=== PATIENT | female | born 1975 | race Caucasian/White ===

== ENCOUNTER 2017-05-06 07:56 | Day surgery (SDC) | payer MEDICAID ==
[~2017-05-06 07:56] MED LIST: Lactated Ringers 1,000 ML IV SCH
[2017-05-06] MEDS ORDERED: ceFAZolin 2 GM in Premix Bag 1 BAG IV ONE ×2 (08:00→09:30)
[2017-05-06] MEDS ORDERED: Lactated Ringers 1,000 ML IV SCH (08:00)
[2017-05-06] MEDS ORDERED: Propofol 200 MG/20 ML SDV IV ONE (10:30)
[2017-05-06] MEDS ORDERED: Lactated Ringers 1,000 ML IV ONE (10:30)
[2017-05-06] MEDS ORDERED: fentaNYL 100 MCG/2 ML SDV IV ONE (10:30)
[2017-05-06] MEDS ORDERED: Ondansetron 4 MG/2 ML SDV IVPUSH ONE (10:30)
[2017-05-06] MEDS ORDERED: Ketorolac 30 MG/ML SDV IVPUSH ONE (10:30)
[2017-05-06] MEDS ORDERED: Rocuronium 50 MG/5 ML Vial IV ONE (10:30)
[2017-05-06] MEDS ORDERED: Midazolam 1 MG/ML 2 ML SDV IV ONE (10:30)
[2017-05-06] MEDS ORDERED: Neostigmine Methylsulfate 10 MG/10 ML MDV IVPUSH ONE (10:30)
[2017-05-06] MEDS ORDERED: Lidocaine 2% 100 MG/5 ML Syringe IVPUSH ONE (10:30)
[2017-05-06] MEDS ORDERED: Glycopyrrolate 0.2 MG/ML 5 ML MDV IV ONE (10:30)
--- NOTE | 2017-05-06 10:41 | PCM.PN ---
- General Info Date of Service: 05/06/17 - Review of Systems Systems Review Comment:: 42 y/o female here for repair of umbilical incisional hernia. The patient is stable to proceed with no recent significant changes to her health status. The site is confirmed with the patient and marked. She agrees to proceed. - Patient Data Vitals - Most Recent: Last Vital Signs Temp 98.7 F 05/06/17 08:33 Pulse 72 05/06/17 08:33 Resp 16 05/06/17 08:33 BP 142/78 H 05/06/17 08:33 Pulse Ox Weight - Most Recent: 257 lb Lab Results Last 24 Hours: Laboratory Results - last 24 hr 05/06/17 Range/Units 09:06 POC Glucose 209 H (80-116) mg/dL Med Orders - Current: Current Medications Lactated Ringer's (Ringers, Lactated) 1,000 mls @ 125 mls/hr IV ASDIRECTED [facility] Last Admin: 05/06/17 09:16 Dose: 125 mls/hr Discontinued Medications Lactated Ringer's (Ringers, Lactated) 1,000 mls @ 125 mls/hr IV ASDIRECTED [facility] Cefazolin Sodium/Dextrose 2 gm (/ Premix) 50 mls @ 50 mls/hr IV ONETIME ONE Stop: 05/06/17 10:29 Last Admin: 05/06/17 09:17 Dose: 50 mls/hr - Problem List Review Problem List Initiated/Reviewed/Updated: Yes - My Orders Last 24 Hours: My Active Orders 05/06/17 08:00 Patient Status [ADT] Routine Blood Glucose Check, Bedside [RC] ONETIME Patient to Empty Bladder [RC] ASDIRECTED Verify Patient Consent Obtain [RC] ASDIRECTED Lactated Ringers [Ringers, Lactated] 1,000 ml IV ASDIRECTED Peripheral IV Insertion Adult [OM.PC] Routine Sequential Compression Device [OM.PC] Routine 05/06/17 Breakfast Nothing Per Oral Diet [DIET] - Assessment Assessment:: Umbilical incisional hernia - Plan Plan:: Repair umbilical incisional hernia
[2017-05-06] MEDS ORDERED: Bupivacaine 0.25% 30 ML SDV INJECT ONE (10:58)
[2017-05-06] MEDS ORDERED: ceFAZolin 1 GM Vial ONE (10:58)
--- NOTE | 2017-05-06 11:36 | PCM.OPNOTE ---
- General Post-Op/Procedure Note Date of Surgery/Procedure: 05/06/17 Operative Procedure(s): Repair Umbilical Hernia Findings: Moderate sized umbilical hernia with good quality surrounding fascia Pre Op Diagnosis: Umbilical Hernia Post-Op Diagnosis: Same Anesthesia Technique: General ET Tube Primary Surgeon: Iker Callahan Pathology: Hernia Sac and Contents Output, Urine Amount: 0 EBL in mLs: 20 Complications: None Condition: Good
[2017-05-06] MEDS ORDERED: Acetaminophen/HYDROcodone 325-5 MG Tab PO ONE (12:01)
--- NOTE | 2017-05-06 12:40 | OR ---
DATE OF OPERATION: 05/06/2017 SURGEON: Iker Callahan MD PREOPERATIVE DIAGNOSIS: Umbilical hernia. POSTOPERATIVE DIAGNOSIS: Umbilical hernia. OPERATION PERFORMED: Repair of umbilical hernia. INDICATIONS FOR SURGERY: This 42-year-old female presents with an increasingly symptomatic bulge at the level of her umbilicus. She has physical findings consistent with an umbilical hernia and she comes for elective repair. FINDINGS: The patient has a moderate-sized umbilical hernia. There is some omentum in the hernia sac although not incarcerated in it. The surrounding fascia appears solid with no other nearby defects. The fascial opening is 3-4 cm in size. PROCEDURE IN DETAIL: The patient was taken to the operating room. She was given general endotracheal anesthesia. The abdomen was sterilely prepped and draped. A transversely oriented supraumbilical incision was made. This was carried down to the underlying hernia sac which was isolated from the surrounding subcutaneous tissue down to the level of the underlying fascia. The skin of the umbilicus was carefully dissected off the hernia sac as well as off the underlying fascia so that this could be clearly inspected. The hernia sac once isolated to the fascia level was amputated using cautery at its junction with the fascia and removed and will be submitted for pathology. Palpation intraabdominally was carried out around the hernia defect and the fascia all appears of good quality circumferentially. The fascial edges were then reapproximated closing the hernia defect with interrupted #1 Prolene in the Smead-Fu suturing technique. This resulted in complete closure of the hernia defect without any evidence of complication. The wound was irrigated and infiltrated with Marcaine. The skin of the umbilicus was tacked down to the underlying fascia and the subcutaneous tissue was approximated with interrupted 3-0 Vicryl and the skin was closed with a running 4-0 Vicryl subcuticular stitch, Steri-Strips and Benzoin. Antibiotic ointment and a sterile dressing were placed. The patient was then awakened, extubated, taken from the operating room in satisfactory condition. ESTIMATED BLOOD LOSS: 20 mL. COMPLICATIONS: None. PROGNOSIS: Good. /[id number] VALERIE/FRANCO
[2017-05-06 15:09] VITALS: BP 116/67
== END 2017-05-06 13:39 | disposition home health service (06) ==
LOC: FB.SDS 07:56
PROVIDERS: ATTEND Surgery
DX: K42.9 Umbilical hernia without obstruction or gangrene (principal); I10 Essential (primary) hypertension; E11.9 Type 2 diabetes mellitus without complications; E78.5 Hyperlipidemia, unspecified; J45.30 Mild persistent asthma, uncomplicated; K21.9 Gastro-esophageal reflux disease without esophagitis; E66.9 Obesity, unspecified; Z91.09 Other allergy status, other than to drugs and biological substances; J30.81 Allergic rhinitis due to animal (cat) (dog) hair and dander; Z79.82 Long term (current) use of aspirin; Z79.899 Other long term (current) drug therapy; Z79.4 Long term (current) use of insulin; Z90.49 Acquired absence of other specified parts of digestive tract; Z98.890 Other specified postprocedural states; Z87.891 Personal history of nicotine dependence
CPT/HCPCS: 49585; 82962; 88302; A9270; J0690; J1885; J2250; J2405; J2704; J2710; J3010; J3490; J7120

== ENCOUNTER 2019-05-25 19:49 | Emergency (ER) | payer MEDICAID ==
[2019-05-25] MEDS ORDERED: Sodium Chloride 0.9% 1,000 ML IV SCH (20:00)
--- NOTE | 2019-05-25 21:01 | EDM.PDOC ---
ED HPI GENERAL MEDICAL PROBLEM - General Chief Complaint: Headache Stated Complaint: MIGRAINE Time Seen by Provider: 05/25/19 20:30 Source of Information: Reports: Patient History Limitations: Reports: No Limitations - History of Present Illness INITIAL COMMENTS - FREE TEXT/NARRATIVE: she presents concern for migraines in the past 2 and half weeks. She reports feeling slightly dizzy, tired, head throbbing, sensitive to light. Normally she is able to go to sleep, but these wounds are actually waking her up a little bit at night and that she is unable to back to sleep. Does get an aura prior to her migraines and abdomen with this one. Denies any nausea. Does not take any regular medication for migraine headaches. She did try taking 1 Excedrin Migraine, but that didn't improve. She has a follow-up appointment on Saturday with her PCP but states that the pain today just became worse and worse and unbearable. Drink caffeine regularly, approximately a pop or 2 a day. She drinks occasional coffee and tea with this, but no additional energy drinks or caffeine supplements. She's been told not to take ibuprofen because of her diabetes. She reports that her glucoses been within reasonable control for her on her to Olivier , NovoLog and Janumet. She smokes approximately a pack per day, but no alcohol or drug use. She denies ringing in her years, change in her vision, numbness, weakness or tingling in any of her extremities, not really nauseous, and no other complaints. She denies fever, neck stiffness, symptoms of her recent upper respiratory tract infection, chest pain, shortness of breath, dyspnea on exertion, abdominal pain, change in urinary habits, leg swelling. headache Pain Score (Numeric/FACES): 10 - Related Data Allergies Allergy/AdvReac Type Severity Reaction Status Date / Time adhesive Allergy Hives Verified 05/25/19 19:58 cat dander Allergy Headache Verified 05/25/19 19:58 Home Meds: Home Meds Aspirin [Halfprin] 81 mg PO DAILY 07/22/14 [History] Esomeprazole [NexIUM] 40 mg PO DAILY 07/22/14 [History] Montelukast Sodium [Singulair] 10 mg PO BEDTIME 07/22/14 [History] hydroCHLOROthiazide [Hydrochlorothiazide] 25 mg PO DAILY 07/22/14 [History] sitaGLIPtin Phos/Metformin HCl [Janumet 50-1,000 MG] 1 each PO BID 07/22/14 [ History] Albuterol Sulfate [Albuterol Sulfate HFA] 2 puff IH Q4H PRN 12/11/14 [History] Clotrimazole [Clotrimazole 1%] 1 applic TOP BID 12/11/14 [History] Fluticasone/Salmeterol [Advair 250-50] 1 puff INH BID 12/11/14 [History] Insulin Aspart [NovoLOG] 15 unit SUBCUT ACBREAKFAST 12/11/14 [History] Insulin Aspart [NovoLOG] 18 unit SUBCUT ACDINNER 12/11/14 [History] Insulin Aspart [NovoLOG] 18 unit SUBCUT ACLUNCH 12/11/14 [History] Insulin Glarg,Human.Rec.Analog [Lantus Solostar] 50 unit SUBCUT BEDTIME [History] Lisinopril [Prinivil] 40 mg PO DAILY 12/11/14 [History] Polyethylene Glycol 3350 255 gm PO DAILY 12/11/14 [History] Sertraline [Zoloft] 100 mg PO DAILY 01/23/15 [History] traZODone 100 mg PO BEDTIME 01/23/15 [History] Calcium Carb/Magnesium Cmb #10 [Adeel-Mag] 1 tab PO BID 05/03/17 [History] Carboxymethylcellulos/Glycerin [Refresh Optive] 1 drop EYEBOTH ASDIRECTED PRN [History] Meclizine HCl 25 mg PO TID PRN 05/03/17 [History] Sennosides [Senexon] 50 mg PO BID 05/03/17 [History] Tolterodine Tartrate [Tolterodine Tartrate ER] 4 mg PO DAILY 05/03/17 [History] atorvaSTATin [Lipitor] 20 mg PO BEDTIME 05/03/17 [History] Hydrocodone/Acetaminophen [Hydrocodon-Acetaminophen 5-325] 1 - 2 tab PO Q4HR PRN #24 tablet 05/06/17 [Rx] Past Medical History HEENT History: Reports: Impaired Vision Cardiovascular History: Reports: High Cholesterol, Hypertension Respiratory History: Reports: Asthma Gastrointestinal History: Reports: Cholelithiasis, GERD Genitourinary History: Reports: Urinary Incontinence SKI BINDING 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 Psychiatric History: Reports: Depression Endocrine/Metabolic History: Reports: Diabetes, Type II Other Endocrine/Metabolic History: USES INSULIN ON IRREGULAR BASIS, ALONG WITH ORAL MED. Hematologic History: Reports: None Immunologic History: Reports: None Oncologic (Cancer) History: Reports: None Dermatologic History: Reports: None - Infectious Disease History Infectious Disease History: Reports: Chicken Pox - Past Surgical History Head Surgeries/Procedures: Reports: None HEENT Surgical History: Reports: Other (See Below) Other HEENT Surgeries/Procedures: RHINOPLASTY GI Surgical History: Reports: Cholecystectomy Female Surgical History: Reports: Hysterectomy, Other (See Below) Other Female Surgeries/Procedures: URETHRAL SLING PLACED Social & Family History - Family History Family Medical History: Noncontributory - Tobacco Use Smoking Status *Q: Current Every Day Smoker Years of Tobacco use: 29 Packs/Tins Daily: 0.5 Tobacco Use Comment: states that she smoked on and off of the years that she is smoking. - Caffeine Use Caffeine Use: Reports: Coffee, Soda, Tea - Alcohol Use Alcohol Use History: No - Recreational Drug Use Recreational Drug Use: No - Living Situation & Occupation Living situation: Reports: Occupation: Employed ED ROS GENERAL - Review of Systems Review Of Systems: ROS reveals no pertinent complaints other than HPI. ED EXAM, GENERAL - Physical Exam Exam: See Below Free Text/Narrative:: Gen.: Alert, pleasant no acute distress. Head is atraumatic. Pupils are equal and reactive and extraocular motion is intact. External ears appear normal, facial muscles are symmetric, throat is without erythema, tongue and uvula are midline. Sensation is equal on both sides of the face. There is no cervical lymphadenopathy in neck is supple. Heart is regular rate and rhythm, lungs are clear throughout with no wheezes or crackles. Abdomen positive bowel sounds, soft nondistended nontender. Muscular strength is equal side to side both the upper and lower extremities and gait is normal, cranial nerves are normal as noted above. Peripheral pulses +2 over 4 in both the upper and lower extremities and there is no lower extremity edema. No abnormal skin lesions or rashes. EKG INTERPRETATION Rhythm: NSR P-Wave: Present QRS: Normal ST-T: Normal QT: Normal Course - Vital Signs Text/Narrative:: initial impression, dizziness over the past 2 weeks, seems to be consistent with her prior migraines however she did appear to be slightly syncopal when went to sat up. We'll get labs, EKG, orthostatics. If everything negative will treat as though migraine with standard migraine cocktail. IV Fluid started Last Recorded V/S: Last Vital Signs Temp 36.7 C 05/25/19 19:58 Pulse 87 05/25/19 19:58 Resp 17 05/25/19 19:58 BP 93/58 L 05/25/19 19:58 Pulse Ox 97 05/25/19 19:58 - Orders/Labs/Meds Orders: Active Orders 24 hr Category Date Time Status EKG Documentation Completion [RC] ASDIRECTED Care 05/25/19 20:42 Ordered Sodium Chloride 0.9% [Normal Saline] 1,000 ml Med 05/25/19 20:00 Active IV ASDIRECTED EKG 12 Lead [EK] Routine Ther 05/25/19 20:41 Ordered Medication Orders Sodium Chloride (Normal Saline) 1,000 mls @ 999 mls/hr IV ASDIRECTED [facility] Last Admin: 05/25/19 20:10 Dose: 999 mls/hr Labs: Laboratory Tests 05/25/19 05/25/19 05/25/19 Range/Units 20:50 20:50 20:50 WBC 7.9 (4.5-12.0) X10-3/uL RBC 4.55 (3.23-5.20) x10(6)uL Hgb 12.4 (11.5-15.5) g/dL Hct 36.5 (30.0-51.3) % MCV 80.1 (80-96) fL MCH 27.1 L (27.7-33.6) pg MCHC 33.9 (32.2-35.4) g/dL RDW 14.8 (11.5-15.5) % Plt Count 259 (125-369) X10(3)uL MPV 8.8 (7.4-10.4) fL Neut % (Auto) 68.7 (46-82) % Lymph % (Auto) 21.8 (13-37) % [place] % (Auto) 5.9 (4-12) % Eos % (Auto) 3 (1.0-5.0) % Baso % (Auto) 1 (0-2) % Neut # (Auto) 5.5 (1.6-8.3) # Lymph # (Auto) 1.7 (0.6-5.0) # [place] # (Auto) 0.5 (0.0-1.3) # Eos # (Auto) 0.2 (0.0-0.8) # Baso # (Auto) 0.0 (0.0-0.2) # Sodium 137 (135-145) mmol/L Potassium 4.0 (3.5-5.3) mmol/L Chloride 101 (100-110) mmol/L Carbon Dioxide 24 (21-32) mmol/L BUN 16 (7-18) mg/dL Creatinine 1.0 (0.55-1.02) mg/dL Est Cr Clr Drug Dosing 70.91 mL/min Estimated GFR (MDRD) 60 (>60) BUN/Creatinine Ratio 16.0 (9-20) Glucose 306 H (80-116) mg/dL Calcium 9.2 (8.6-10.2) mg/dL Troponin I < 0.017 L (<0.017-0.056) ng/mL Meds: Medications Generic Name Dose Route Start Last Admin Trade Name Freq PRN Reason Stop Dose Admin Sodium Chloride 1,000 mls @ 999 mls/hr 05/25/19 20:00 05/25/19 20:45 Normal Saline IV 999 mls/hr ASDIRECTED [facility] Infusion Discontinued Medications Generic Name Dose Route Start Last Admin Trade Name Freq PRN Reason Stop Dose Admin Diphenhydramine HCl 50 mg 05/25/19 21:11 05/25/19 21:33 Benadryl IVPUSH 05/25/19 21:12 50 mg ONETIME ONE Administration Ketorolac Tromethamine 15 mg 05/25/19 21:11 05/25/19 21:32 Toradol IVPUSH 05/25/19 21:12 15 mg ONETIME ONE Administration Prochlorperazine Edisylate 10 mg 05/25/19 21:11 05/25/19 21:32 Compazine IVPUSH 05/25/19 21:12 10 mg ONETIME ONE Administration - Re-Assessments/Exams Free Text/Narrative Re-Assessment/Exam: 05/25/19 labs returned within normal limits, orthostatics are negative, EKG also normal. Will give low-dose Toradol, IV Compazine and Benadryl and finished 1 L normal saline bolus then reassess. Free Text/Narrative Re-Assessment/Exam: 05/25/19 21:51 feeling improved following meds and 1 L bolus. She feels at this point she would like to go home and sleep, and will keep her follow-up appointment on Saturday. Recommended increase her daily water intake at this time and discussed other home treatments for migraines. All questions were answered and she is in agreement with this plan Departure - Departure Time of Disposition: 21:39 Disposition: Home, Self-Care 01 Condition: Good Clinical Impression: Migraine - Discharge Information Instructions: Recurrent Migraine Headache, [id number] Referrals: Jaqueline Garrido [facility] SALES DEVELOPER [Primary Care Provider] - Forms: ED Department Discharge Additional Instructions: be sure to drink a lot of fluid at home, water is best of note, sometimes the sugar-free pop can actually contribute to headaches - the sugar substitute doesn't agree with some people careful with caffeine, although sometimes it is helpful for migraines followup with PCP on Saturday as scheduled - My Orders Last 24 Hours: My Active Orders 05/25/19 20:00 Sodium Chloride 0.9% [Normal Saline] 1,000 ml IV ASDIRECTED 05/25/19 20:41 EKG 12 Lead [EK] Routine 05/25/19 20:42 EKG Documentation Completion [RC] ASDIRECTED - Assessment/Plan Last 24 Hours: My Active Orders 05/25/19 20:00 Sodium Chloride 0.9% [Normal Saline] 1,000 ml IV ASDIRECTED 05/25/19 20:41 EKG 12 Lead [EK] Routine 05/25/19 20:42 EKG Documentation Completion [RC] ASDIRECTED
[2019-05-25] MEDS ORDERED: diphenhydrAMINE 50 MG/ML SDV IVPUSH ONE (21:11)
[2019-05-25] MEDS ORDERED: Ketorolac 30 MG/ML SDV IVPUSH ONE (21:11)
[2019-05-25] MEDS ORDERED: Prochlorperazine 10 MG/2 ML SDV IVPUSH ONE (21:11)
[2019-05-25 22:07] VITALS: BP 105/50; PULSE 83
== END 2019-05-25 21:47 | disposition home or self-care (01) ==
LOC: FB.ED 19:49
DX: G43.909 Migraine, unspecified, not intractable, without status migrainosus (principal); I10 Essential (primary) hypertension; E11.9 Type 2 diabetes mellitus without complications; J45.909 Unspecified asthma, uncomplicated; F32.9 Major depressive disorder, single episode, unspecified; M19.90 Unspecified osteoarthritis, unspecified site; E78.00 Pure hypercholesterolemia, unspecified; F17.210 Nicotine dependence, cigarettes, uncomplicated; Z79.82 Long term (current) use of aspirin; Z79.4 Long term (current) use of insulin; Z79.899 Other long term (current) drug therapy
CPT/HCPCS: 36415; 80048; 84484; 85025; 93005; 96374; 96375; 99283; J0780; J1200; J1885; J7030

== ENCOUNTER 2019-06-02 17:49 | Emergency (ER) | payer MEDICAID ==
[2019-06-02] MEDS ORDERED: Alum Hydroxide/Mag Hydroxide 15 ML, Lidocaine 2% 15 ML PO ONE ×2 (18:18)
--- NOTE | 2019-06-02 19:05 | EDM.PDOC ---
ED HPI GENERAL MEDICAL PROBLEM - General Chief Complaint: Chest Pain Stated Complaint: CHEST PAIN Time Seen by Provider: 06/02/19 18:00 Source of Information: Reports: Patient - History of Present Illness INITIAL COMMENTS - FREE TEXT/NARRATIVE: Patient is a 44 YO WF who presented to the ED because epigastric pain,burning, radiating to her sternal area. The pain is 7/10 and worse with breathing and movements. She denies any N/V,dyspnea. She had similar episodes in the past and her EKG and troponin are normal. Onset: Today - Related Data Allergies Allergy/AdvReac Type Severity Reaction Status Date / Time adhesive Allergy Hives Verified 06/02/19 18:03 cat dander Allergy Headache Verified 06/02/19 18:03 Home Meds: Home Meds Aspirin [Halfprin] 81 mg PO DAILY 07/22/14 [History] Esomeprazole [NexIUM] 40 mg PO DAILY 07/22/14 [History] Montelukast Sodium [Singulair] 10 mg PO BEDTIME 07/22/14 [History] hydroCHLOROthiazide [Hydrochlorothiazide] 25 mg PO DAILY 07/22/14 [History] sitaGLIPtin Phos/Metformin HCl [Janumet 50-1,000 MG] 1 each PO BID 07/22/14 [ History] Albuterol Sulfate [Albuterol Sulfate HFA] 2 puff IH Q4H PRN 12/11/14 [History] Clotrimazole [Clotrimazole 1%] 1 applic TOP BID 12/11/14 [History] Fluticasone/Salmeterol [Advair 250-50] 1 puff INH BID 12/11/14 [History] Insulin Aspart [NovoLOG] 15 unit SUBCUT ACBREAKFAST 12/11/14 [History] Insulin Aspart [NovoLOG] 18 unit SUBCUT ACDINNER 12/11/14 [History] Insulin Aspart [NovoLOG] 18 unit SUBCUT ACLUNCH 12/11/14 [History] Insulin Glarg,Human.Rec.Analog [Lantus Solostar] 50 unit SUBCUT BEDTIME [History] Lisinopril [Prinivil] 40 mg PO DAILY 12/11/14 [History] Polyethylene Glycol 3350 255 gm PO DAILY 12/11/14 [History] Sertraline [Zoloft] 100 mg PO DAILY 01/23/15 [History] traZODone 100 mg PO BEDTIME 01/23/15 [History] Calcium Carb/Magnesium Cmb #10 [Adeel-Mag] 1 tab PO BID 05/03/17 [History] Carboxymethylcellulos/Glycerin [Refresh Optive] 1 drop EYEBOTH ASDIRECTED PRN [History] Meclizine HCl 25 mg PO TID PRN 05/03/17 [History] Sennosides [Senexon] 50 mg PO BID 05/03/17 [History] Tolterodine Tartrate [Tolterodine Tartrate ER] 4 mg PO DAILY 05/03/17 [History] atorvaSTATin [Lipitor] 20 mg PO BEDTIME 05/03/17 [History] Hydrocodone/Acetaminophen [Hydrocodon-Acetaminophen 5-325] 1 - 2 tab PO Q4HR PRN #24 tablet 05/06/17 [Rx] Past Medical History HEENT History: Reports: Impaired Vision Cardiovascular History: Reports: High Cholesterol, Hypertension Respiratory History: Reports: Asthma Gastrointestinal History: Reports: Cholelithiasis, GERD Genitourinary History: Reports: Urinary Incontinence IMPLEMENTATION 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 Psychiatric History: Reports: Depression Endocrine/Metabolic History: Reports: Diabetes, Type II Other Endocrine/Metabolic History: USES INSULIN ON IRREGULAR BASIS, ALONG WITH ORAL MED. Hematologic History: Reports: None Immunologic History: Reports: None Oncologic (Cancer) History: Reports: None Dermatologic History: Reports: None - Infectious Disease History Infectious Disease History: Reports: Chicken Pox - Past Surgical History Head Surgeries/Procedures: Reports: None HEENT Surgical History: Reports: Other (See Below) Other HEENT Surgeries/Procedures: RHINOPLASTY GI Surgical History: Reports: Cholecystectomy Female Surgical History: Reports: Hysterectomy, Other (See Below) Other Female Surgeries/Procedures: URETHRAL SLING PLACED Social & Family History - Family History Family Medical History: Noncontributory - Caffeine Use Caffeine Use: Reports: Coffee, Soda, Tea - Living Situation & Occupation Living situation: Reports: Occupation: Employed ED ROS GENERAL - Review of Systems Review Of Systems: Unable To Obtain Constitutional: Reports: No Symptoms HEENT: Reports: No Symptoms Respiratory: Reports: No Symptoms Cardiovascular: Reports: No Symptoms Endocrine: Reports: No Symptoms GI/Abdominal: Reports: No Symptoms, Other (epigastric pain) : Reports: No Symptoms Musculoskeletal: Reports: No Symptoms Skin: Reports: No Symptoms Neurological: Reports: No Symptoms ED EXAM, GENERAL - Physical Exam Exam: See Below Exam Limited By: No Limitations General Appearance: Alert, No Apparent Distress Ears: Normal External Exam, Normal Canal Nose: Normal Inspection, Normal Mucosa, No Blood Throat/Mouth: Normal Inspection, Normal Lips Head: Atraumatic, Normocephalic Neck: Normal Inspection, Supple, Non-Tender Respiratory/Chest: No Respiratory Distress, Lungs Clear, Normal Breath Sounds Cardiovascular: Normal Peripheral Pulses, Regular Rate, Rhythm, No Edema, No Murmur, No Rub GI/Abdominal: Normal Bowel Sounds, Soft, Other (epigastric tenderness) Back Exam: Normal Inspection Extremities: Normal Inspection Neurological: Oriented, CN II-XII Intact Course - Vital Signs Last Recorded V/S: Last Vital Signs Temp 36.6 C 06/02/19 17:55 Pulse 78 06/02/19 17:55 Resp 17 06/02/19 17:55 BP 112/88 06/02/19 17:55 Pulse Ox 95 06/02/19 17:55 - Orders/Labs/Meds Orders: Active Orders 24 hr Category Date Time Status EKG Documentation Completion [RC] ASDIRECTED Care 06/02/19 18:21 Active EKG 12 Lead [EK] Routine Ther 06/02/19 18:21 Ordered Labs: Laboratory Tests 06/02/19 06/02/19 06/02/19 Range/Units 18:30 18:30 18:30 WBC 8.6 (4.5-12.0) X10-3/uL RBC 4.39 (3.23-5.20) x10(6)uL Hgb 12.1 (11.5-15.5) g/dL Hct 35.1 (30.0-51.3) % MCV 79.9 L (80-96) fL MCH 27.5 L (27.7-33.6) pg MCHC 34.4 (32.2-35.4) g/dL RDW 14.8 (11.5-15.5) % Plt Count 283 (125-369) X10(3)uL MPV 8.9 (7.4-10.4) fL Neut % (Auto) 70.5 (46-82) % Lymph % (Auto) 20.8 (13-37) % [place] % (Auto) 5.4 (4-12) % Eos % (Auto) 3 (1.0-5.0) % Baso % (Auto) 1 (0-2) % Neut # (Auto) 6.1 (1.6-8.3) # Lymph # (Auto) 1.8 (0.6-5.0) # [place] # (Auto) 0.5 (0.0-1.3) # Eos # (Auto) 0.2 (0.0-0.8) # Baso # (Auto) 0.0 (0.0-0.2) # Sodium 138 (135-145) mmol/L Potassium 4.0 (3.5-5.3) mmol/L Chloride 103 (100-110) mmol/L Carbon Dioxide 28 (21-32) mmol/L BUN 11 (7-18) mg/dL Creatinine 0.8 (0.55-1.02) mg/dL Est Cr Clr Drug Dosing TNP Estimated GFR (MDRD) > 60 (>60) BUN/Creatinine Ratio 13.8 (9-20) Glucose 117 H D (80-116) mg/dL Calcium 8.9 (8.6-10.2) mg/dL Troponin I < 0.017 L (<0.017-0.056) ng/mL Meds: Medications Discontinued Medications Generic Name Dose Route Start Last Admin Trade Name Freq PRN Reason Stop Dose Admin Al Hydroxide/Mg Hydroxide 15 0 ml 06/02/19 18:18 06/02/19 18:24 ml/ Lidocaine HCl 15 ml PO 06/02/19 18:19 30 ml ONETIME ONE Administration Departure - Departure Time of Disposition: 16:50 Disposition: Home, Self-Care 01 Clinical Impression: GERD (gastroesophageal reflux disease) Instructions: Heartburn, [id number] Referrals: Jaqueline Garrido COATER [Primary Care Provider] - Forms: ED Department Discharge Additional Instructions: please read dischage instructions on GERD/Heart burn read the food and beverages that can make your acid reflux worse continue prilosec 20 mg once daily follow up if symptoms persist or worsens - My Orders Last 24 Hours: My Active Orders 06/02/19 18:21 EKG Documentation Completion [RC] ASDIRECTED EKG 12 Lead [EK] Routine - Assessment/Plan Last 24 Hours: My Active Orders 06/02/19 18:21 EKG Documentation Completion [RC] ASDIRECTED EKG 12 Lead [EK] Routine
[2019-06-02 19:29] VITALS: BP 140/74
== END 2019-06-02 19:10 | disposition home or self-care (01) ==
LOC: FB.ED 17:49
DX: K21.9 Gastro-esophageal reflux disease without esophagitis (principal); I10 Essential (primary) hypertension; E11.9 Type 2 diabetes mellitus without complications; J45.909 Unspecified asthma, uncomplicated; F32.9 Major depressive disorder, single episode, unspecified; E78.00 Pure hypercholesterolemia, unspecified; M19.90 Unspecified osteoarthritis, unspecified site; Z90.49 Acquired absence of other specified parts of digestive tract; Z90.710 Acquired absence of both cervix and uterus; Z88.8 Allergy status to other drugs, medicaments and biological substances; Z79.82 Long term (current) use of aspirin; Z79.899 Other long term (current) drug therapy; Z79.4 Long term (current) use of insulin
CPT/HCPCS: 36415; 80048; 84484; 85025; 93005; 99285; A9270

== ENCOUNTER → 2019-08-25 | Outpatient (CLI) | payer MEDICAID | LOC: FB.MH 08:00 | PROVIDERS: ATTEND Psychologist Clinical | DX: F34.0 Cyclothymic disorder (principal) | CPT/HCPCS: 90834 ==

== ENCOUNTER → 2019-08-31 | Outpatient (CLI) | payer MEDICAID | LOC: FB.MH 08:00 | PROVIDERS: ATTEND Psychiatry & Neurology Psychiatry | DX: F34.0 Cyclothymic disorder (principal) | CPT/HCPCS: 99213 ==

== ENCOUNTER 2022-01-24 21:34 | Emergency (ER) | payer MEDICAID ==
[2022-01-24] MEDS ORDERED: Acetaminophen/HYDROcodone 325-5 MG Tab PO ONE (21:35)
[2022-01-24 22:53] VITALS: BP 114/55; PULSE 86
== END 2022-01-24 22:10 | disposition home or self-care (01) ==
LOC: FB.ED 21:34
DX: M25.561 Pain in right knee (principal); E78.00 Pure hypercholesterolemia, unspecified; I10 Essential (primary) hypertension; E11.9 Type 2 diabetes mellitus without complications; K21.9 Gastro-esophageal reflux disease without esophagitis; Z91.048 Other nonmedicinal substance allergy status; Z91.09 Other allergy status, other than to drugs and biological substances; Z79.82 Long term (current) use of aspirin; Z79.899 Other long term (current) drug therapy; Z79.4 Long term (current) use of insulin
CPT/HCPCS: 99283; A9270-GY

== ENCOUNTER → 2022-07-10 | Day surgery (SDC) | payer MEDICAID | LOC: FB.SDS 07:00 | PROVIDERS: ATTEND Surgery | DX: K29.50 Unspecified chronic gastritis without bleeding (principal); K21.9 Gastro-esophageal reflux disease without esophagitis; R13.10 Dysphagia, unspecified; I10 Essential (primary) hypertension; J45.909 Unspecified asthma, uncomplicated; E11.9 Type 2 diabetes mellitus without complications; Z79.4 Long term (current) use of insulin; Z87.891 Personal history of nicotine dependence; Z88.8 Allergy status to other drugs, medicaments and biological substances; Z79.899 Other long term (current) drug therapy | CPT/HCPCS: 82962; 88305; 88342 ==

== ENCOUNTER 2022-10-29 20:46 | Emergency (ER) | payer MEDICAID ==
[2022-10-29] MEDS ORDERED: Sulfamethoxazole/Trimethoprim 800-160 MG Tab PO ONE (20:47)
[2022-10-29 21:14] VITALS: BP 117/64; PULSE 89
== END 2022-10-29 21:26 | disposition home or self-care (01) ==
LOC: FB.ED 20:46
DX: T81.49XA Infection following a procedure, other surgical site, initial encounter (principal); M25.561 Pain in right knee; M79.89 Other specified soft tissue disorders; E78.00 Pure hypercholesterolemia, unspecified; I10 Essential (primary) hypertension; E11.9 Type 2 diabetes mellitus without complications; E66.9 Obesity, unspecified; Z68.35 Body mass index [BMI] 35.0-35.9, adult; Z91.040 Latex allergy status; Z91.048 Other nonmedicinal substance allergy status; Z88.8 Allergy status to other drugs, medicaments and biological substances; Z79.82 Long term (current) use of aspirin; Z79.899 Other long term (current) drug therapy; Z79.4 Long term (current) use of insulin; Z90.49 Acquired absence of other specified parts of digestive tract; Z90.710 Acquired absence of both cervix and uterus
CPT/HCPCS: 99282; A9270-GY

== ENCOUNTER 2023-03-24 21:16 | Emergency (ER) | payer MEDICAID ==
[2023-03-24] MEDS ORDERED: Lidocaine 2% Viscous Solution 15 ML UD TOP ONE (21:54)
[2023-03-24] MEDS ORDERED: Lidocaine 2% Viscous Solution 15 ML UD PO ONE (21:54)
[2023-03-24] MEDS ORDERED: Lidocaine 2% Viscous Solution 15 ML UD TOP STA (21:56)
[2023-03-24 23:17] VITALS: BP 121/67; PULSE 75
== END 2023-03-24 22:22 | disposition home or self-care (01) ==
LOC: FB.ED 21:16
DX: L57.8 Other skin changes due to chronic exposure to nonionizing radiation (principal); E78.00 Pure hypercholesterolemia, unspecified; I10 Essential (primary) hypertension; J45.909 Unspecified asthma, uncomplicated; K21.9 Gastro-esophageal reflux disease without esophagitis; M19.90 Unspecified osteoarthritis, unspecified site; E11.9 Type 2 diabetes mellitus without complications; E66.9 Obesity, unspecified; Z91.09 Other allergy status, other than to drugs and biological substances; Z91.040 Latex allergy status; Z88.8 Allergy status to other drugs, medicaments and biological substances; Z79.82 Long term (current) use of aspirin; Z79.51 Long term (current) use of inhaled steroids; Z79.899 Other long term (current) drug therapy; Z79.4 Long term (current) use of insulin; Z68.35 Body mass index [BMI] 35.0-35.9, adult
CPT/HCPCS: 99282; A9270-GY

== ENCOUNTER 2024-08-15 11:22 | Emergency (ER) | payer MEDICAID ==
[2024-08-15 11:58] LABS: BASOPHILS ABSOLUTE AUTO 0.1 x10-3/uL (0.0-0.1); BASOPHILS PERCENT AUTO 1.2 % (0.2-1.5); EOSINOPHILS ABSOLUTE AUTO 0.3 x10-3/uL (0.0-0.8); EOSINOPHILS PERCENT AUTO 4.3 % (0.6-8.1); HEMATOCRIT 39.3 % (34.2-48.2); HEMOGLOBIN 13.4 g/dL (11.4-15.5); LYMPHOCYTES ABSOLUTE AUTO 1.2 x10-3/uL (1.0-4.4); LYMPHOCYTES PERCENT AUTO 18.9 % (18.4-52.1); MEAN CORPUSCULAR HEMOGLOBIN 29.2 pg (23.9-33.9); MEAN CORPUSCULAR HGB CONC 34.1 g/dL (31.9-34.8); MEAN CORPUSCULAR VOLUME 85.8 fL (76.7-100.5); MEAN PLATELET VOLUME 7.8 fL (7.1-12.4); MONOCYTES ABSOLUTE AUTO 0.4 x10-3/uL (0.3-1.0); MONOCYTES PERCENT AUTO 6.5 % (4.4-15.7); NEUTROPHILS ABSOLUTE AUTO 4.2 x10-3/uL (1.5-6.3); NEUTROPHILS PERCENT AUTO 69.1 % (30.8-76.2); PLATELET COUNT,PLT 238 x10(3)uL (151-488); RED BLOOD CELL COUNT 4.58 x10(6)uL (3.60-5.20); RED CELL DISTRIBUTION WIDTH 13.3 % (12.3-16.5); WHITE BLOOD CELL COUNT,WBC 6.1 x10-3/uL (3.0-10.3)
[2024-08-15 12:06] LABS: BLOOD UREA NITROGEN,BUN 14 mg/dL (7-18); BUN/CREATININE RATIO 17.5 (9-20); CARBON DIOXIDE,CO2 26 mmol/L (21-32); CHLORIDE,CL 102 mmol/L (100-110); CREATININE 0.8 mg/dL (0.55-1.02); EST CRCL DRUG DOSING (CG) 83.92 mL/min; ESTIMATED GFR 89 mL/min (>60); GLUCOSE RANDOM 100 mg/dL (80-116); POTASSIUM,K 4.1 mmol/L (3.5-5.3); SODIUM,NA 139 mmol/L (135-145)
[2024-08-15 12:12] LABS: A/G RATIO 1.3; ALANINE AMINOTRANSFERASE,ALT 24 U/L (12-36); ALBUMIN 3.9 g/dL (3.5-5.2); ALKALINE PHOSPHATASE 97 IU/L (56-112); ASPARTATE AMNIOTRANSFERASE,AST 10 IU/L (5-25); BILIRUBIN TOTAL 0.1 mg/dL (0.1-1.3); PROTEIN TOTAL,TP 6.8 g/dL (6.0-8.0)
[2024-08-15 12:38] LABS: CORONAVIRUS COVID-19 NAA NEGATIVE (NEGATIVE); INFLUENZA A NAA NEGATIVE (NEGATIVE); INFLUENZA B NAA NEGATIVE (NEGATIVE); RESPIRATORY SYNCYTIAL VIR NAA NEGATIVE (NEGATIVE)
[2024-08-15] MEDS: Oxymetazoline 0.05% Nasal Spray 30 ML Bottle NAS ONE (12:58)
[2024-08-15 13:22] VITALS: BP 115/78; PULSE 76
== END 2024-08-15 13:10 | disposition home or self-care (01) ==
LOC: FB.ED 11:22
DX: B34.9 Viral infection, unspecified (principal); I10 Essential (primary) hypertension; E78.00 Pure hypercholesterolemia, unspecified; J45.909 Unspecified asthma, uncomplicated; K21.9 Gastro-esophageal reflux disease without esophagitis; M19.90 Unspecified osteoarthritis, unspecified site; E11.9 Type 2 diabetes mellitus without complications; E66.9 Obesity, unspecified; F17.210 Nicotine dependence, cigarettes, uncomplicated; Z90.49 Acquired absence of other specified parts of digestive tract; Z90.710 Acquired absence of both cervix and uterus; Z91.040 Latex allergy status; Z91.048 Other nonmedicinal substance allergy status; Z88.8 Allergy status to other drugs, medicaments and biological substances; Z79.51 Long term (current) use of inhaled steroids; Z79.82 Long term (current) use of aspirin; Z79.4 Long term (current) use of insulin; Z79.899 Other long term (current) drug therapy; Z68.34 Body mass index [BMI] 34.0-34.9, adult
CPT/HCPCS: 0241U; 36415; 80053; 85025; 86140; 99284

== ENCOUNTER 2024-08-24 20:17 | Emergency (ER) | payer MEDICAID ==
[2024-08-24 20:39] VITALS: BP 149/48; PULSE 82
[2024-08-24] MEDS: Orphenadrine 60 MG/2 ML Inj IM ONE (20:54)
[2024-08-24] MEDS: Dexamethasone 4 MG/ML 5 ML MDV IM ONE (20:54)
[2024-08-24] MEDS: Doxycycline 100 MG Tab PO ONE (20:54)
== END 2024-08-24 21:05 | disposition home or self-care (01) ==
LOC: FB.ED 20:17
DX: J20.9 Acute bronchitis, unspecified (principal); S23.3XXA Sprain of ligaments of thoracic spine, initial encounter; M62.830 Muscle spasm of back; H65.192 Other acute nonsuppurative otitis media, left ear; I10 Essential (primary) hypertension; E78.00 Pure hypercholesterolemia, unspecified; K21.9 Gastro-esophageal reflux disease without esophagitis; E11.9 Type 2 diabetes mellitus without complications; E66.9 Obesity, unspecified; Z90.49 Acquired absence of other specified parts of digestive tract; Z90.710 Acquired absence of both cervix and uterus; Z79.82 Long term (current) use of aspirin; Z79.899 Other long term (current) drug therapy; Z79.4 Long term (current) use of insulin; Z79.51 Long term (current) use of inhaled steroids; Z91.040 Latex allergy status; Z91.048 Other nonmedicinal substance allergy status; Z88.8 Allergy status to other drugs, medicaments and biological substances; Z68.34 Body mass index [BMI] 34.0-34.9, adult; X58.XXXA Exposure to other specified factors, initial encounter
CPT/HCPCS: 96372; 99284; A9270-GY; J1100; J2360

== ENCOUNTER 2024-09-28 13:04 | Emergency (ER) | payer MEDICAID ==
[2024-09-28 13:14] VITALS: BP 119/75; PULSE 84
[2024-09-28] MEDS ORDERED: Sodium Chloride 0.9% 10 ML Syringe FLUSH PRN (13:31)
[2024-09-28 13:51] LABS: BASOPHILS ABSOLUTE AUTO 0.1 x10-3/uL (0.0-0.1); BASOPHILS PERCENT AUTO 0.7 % (0.2-1.5); EOSINOPHILS ABSOLUTE AUTO 0.3 x10-3/uL (0.0-0.8); EOSINOPHILS PERCENT AUTO 2.8 % (0.6-8.1); HEMATOCRIT 39.6 % (34.2-48.2); HEMOGLOBIN 13.7 g/dL (11.4-15.5); LYMPHOCYTES PERCENT AUTO 10.4 % (18.4-52.1); MEAN CORPUSCULAR HEMOGLOBIN 29.3 pg (23.9-33.9); MEAN CORPUSCULAR HGB CONC 34.5 g/dL (31.9-34.8); MEAN CORPUSCULAR VOLUME 84.8 fL (76.7-100.5); MEAN PLATELET VOLUME 8.3 fL (7.1-12.4); MONOCYTES ABSOLUTE AUTO 0.4 x10-3/uL (0.3-1.0); MONOCYTES PERCENT AUTO 4.6 % (4.4-15.7); NEUTROPHILS ABSOLUTE AUTO 7.7 x10-3/uL (1.5-6.3); NEUTROPHILS PERCENT AUTO 81.5 % (30.8-76.2); PLATELET COUNT,PLT 245 x10(3)uL (151-488); RED BLOOD CELL COUNT 4.67 x10(6)uL (3.60-5.20); RED CELL DISTRIBUTION WIDTH 13.1 % (12.3-16.5); WHITE BLOOD CELL COUNT,WBC 9.4 x10-3/uL (3.0-10.3)
[2024-09-28 13:56] LABS: BLOOD UREA NITROGEN,BUN 12 mg/dL (7-18); CALCIUM 9.5 mg/dL (8.6-10.2); CARBON DIOXIDE,CO2 25 mmol/L (21-32); CHLORIDE,CL 99 mmol/L (100-110); CREATININE 0.8 mg/dL (0.55-1.02); EST CRCL DRUG DOSING (CG) 83.92 mL/min; ESTIMATED GFR 89 mL/min (>60); GLUCOSE RANDOM 175 mg/dL (80-116); POTASSIUM,K 4.1 mmol/L (3.5-5.3); SODIUM,NA 138 mmol/L (135-145)
[2024-09-28 14:02] LABS: A/G RATIO 1.4; ALANINE AMINOTRANSFERASE,ALT 34 U/L (12-36); ALBUMIN 3.9 g/dL (3.5-5.2); ALKALINE PHOSPHATASE 110 IU/L (56-112); ASPARTATE AMNIOTRANSFERASE,AST 17 IU/L (5-25); BILIRUBIN TOTAL 0.1 mg/dL (0.1-1.3); MAGNESIUM 1.4 mg/dL (1.8-2.5); PROTEIN TOTAL,TP 6.7 g/dL (6.0-8.0)
[2024-09-28] MEDS: LORazepam 2 MG/ML SDV IVPUSH ONE (14:04)
[2024-09-28] MEDS: Haloperidol Lactate 5 MG/ML SDV IV ONE (14:04)
[2024-09-28] MEDS: Sodium Chloride 0.9% 1,000 ML IV ONE ×2 (14:25→15:32)
[2024-09-28] MEDS: Iopamidol 755 Mg/ML 100 ML Bottle IV SCH (14:48)
[2024-09-28 15:46] LABS: APPEARANCE,URINE CLEAR (CLEAR); BACTERIA,URINE FEW (NS); BILIRUBIN,URINE NEGATIVE (NEGATIVE); COLOR,URINE YELLOW (YELLOW); GLUCOSE,URINE NORMAL (NORMAL); KETONES,URINE NEGATIVE (NEGATIVE); LEUKOCYTE ESTERASE,URINE NEGATIVE (NEGATIVE); NITRITE,URINE NEGATIVE (NEGATIVE); OCCULT BLOOD,URINE NEGATIVE (NEGATIVE); PROTEIN,URINE NEGATIVE (NEGATIVE); RBC,URINE 0-5 (0-5); SQUAMOUS EPITHELIAL CELLS,UR FEW (NS,R,O); UROBILINOGEN,URINE NORMAL (NEGATIVE); WBC,URINE 0-5 (0-5)
[2024-09-28] MEDS: Piperacillin/Tazobactam 4.5 GM in Sodium Chloride 0.9% 100 ML IV ONE (16:57)
== END 2024-09-28 16:30 ==
LOC: FB.ED 13:04
DX: K35.80 Unspecified acute appendicitis (principal); E86.0 Dehydration; E87.20 Acidosis, unspecified; I10 Essential (primary) hypertension; E78.00 Pure hypercholesterolemia, unspecified; J45.909 Unspecified asthma, uncomplicated; K21.9 Gastro-esophageal reflux disease without esophagitis; E11.9 Type 2 diabetes mellitus without complications; E66.9 Obesity, unspecified; F17.210 Nicotine dependence, cigarettes, uncomplicated; Z90.49 Acquired absence of other specified parts of digestive tract; Z90.710 Acquired absence of both cervix and uterus; Z88.8 Allergy status to other drugs, medicaments and biological substances; Z91.040 Latex allergy status; Z91.048 Other nonmedicinal substance allergy status; Z79.82 Long term (current) use of aspirin; Z79.51 Long term (current) use of inhaled steroids; Z79.52 Long term (current) use of systemic steroids; Z79.4 Long term (current) use of insulin; Z79.899 Other long term (current) drug therapy; Z68.34 Body mass index [BMI] 34.0-34.9, adult
CPT/HCPCS: 36415; 74177; 80053; 81001; 83605; 83690; 83735; 84484; 85025; 86140; 93005; 96361; 96374; 96375; 99285; J1630; J2060; J2543; J3490; J7030; Q9967

== ENCOUNTER 2024-10-14 20:10 | Emergency (ER) | payer MEDICAID ==
[2024-10-14] MEDS ORDERED: predniSONE 10 MG Tab PO ONE (20:11)
[2024-10-14 20:30] VITALS: BP 117/71; PULSE 102
== END 2024-10-14 21:18 | disposition home or self-care (01) ==
LOC: FB.ED 20:10
DX: J45.909 Unspecified asthma, uncomplicated (principal); I10 Essential (primary) hypertension; E78.00 Pure hypercholesterolemia, unspecified; K21.9 Gastro-esophageal reflux disease without esophagitis; M19.90 Unspecified osteoarthritis, unspecified site; E11.9 Type 2 diabetes mellitus without complications; E66.9 Obesity, unspecified; Z68.33 Body mass index [BMI] 33.0-33.9, adult; Z90.710 Acquired absence of both cervix and uterus; Z90.49 Acquired absence of other specified parts of digestive tract; Z88.8 Allergy status to other drugs, medicaments and biological substances; Z91.040 Latex allergy status; Z91.048 Other nonmedicinal substance allergy status; Z79.82 Long term (current) use of aspirin; Z79.51 Long term (current) use of inhaled steroids; Z79.52 Long term (current) use of systemic steroids; Z79.4 Long term (current) use of insulin; Z79.899 Other long term (current) drug therapy
CPT/HCPCS: 87428-QW; 99283; J7512

== ENCOUNTER 2025-06-22 20:11 | Emergency (ER) | payer MEDICAID ==
[2025-06-22] MEDS ORDERED: Acetaminophen/oxyCODONE 325-5 MG Tab PO ONE (20:12)
[2025-06-22 20:28] VITALS: BP 128/63; PULSE 82
[2025-06-22] MEDS: Acetaminophen/oxyCODONE 325-5 MG Tab PO STA (21:28)
== END 2025-06-22 21:40 | disposition home or self-care (01) ==
LOC: FB.ED 20:11
DX: S52.102A Unspecified fracture of upper end of left radius, initial encounter for closed fracture (principal); M25.561 Pain in right knee; E78.00 Pure hypercholesterolemia, unspecified; I10 Essential (primary) hypertension; K21.9 Gastro-esophageal reflux disease without esophagitis; J45.909 Unspecified asthma, uncomplicated; F17.210 Nicotine dependence, cigarettes, uncomplicated; E11.9 Type 2 diabetes mellitus without complications; Z91.048 Other nonmedicinal substance allergy status; Z91.040 Latex allergy status; Z88.8 Allergy status to other drugs, medicaments and biological substances; Z79.82 Long term (current) use of aspirin; Z79.899 Other long term (current) drug therapy; Z79.51 Long term (current) use of inhaled steroids; Z79.4 Long term (current) use of insulin; V18.0XXA Pedal cycle driver injured in noncollision transport accident in nontraffic accident, initial encounter; Y93.55 Activity, bike riding
CPT/HCPCS: 29125; 73080; 73562; 99283; A9270

== ENCOUNTER 2025-08-11 23:40 | Emergency (ER) | payer MEDICAID ==
[2025-08-11 23:56] VITALS: BP 114/70; PULSE 73
== END 2025-08-12 01:25 | disposition home or self-care (01) ==
LOC: FB.ED 23:40
DX: S93.602A Unspecified sprain of left foot, initial encounter (principal); E78.00 Pure hypercholesterolemia, unspecified; I10 Essential (primary) hypertension; J45.909 Unspecified asthma, uncomplicated; K21.9 Gastro-esophageal reflux disease without esophagitis; E11.9 Type 2 diabetes mellitus without complications; F17.200 Nicotine dependence, unspecified, uncomplicated; Z91.048 Other nonmedicinal substance allergy status; Z91.040 Latex allergy status; Z88.8 Allergy status to other drugs, medicaments and biological substances; Z79.82 Long term (current) use of aspirin; Z79.899 Other long term (current) drug therapy; Z79.4 Long term (current) use of insulin; X50.1XXA Overexertion from prolonged static or awkward postures, initial encounter; Y93.89 Activity, other specified
CPT/HCPCS: 73610-LT; 73630-LT; 99283